=== PATIENT | male | born 1950 | race Caucasian/White ===

== ENCOUNTER 2024-02-25 10:45 | Emergency (ER) | payer OTHER | END 2024-02-25 11:35 | disposition home or self-care (01) | LOC: ERS 10:45 | DX: J02.8 Acute pharyngitis due to other specified organisms (principal); E11.9 Type 2 diabetes mellitus without complications; K21.9 Gastro-esophageal reflux disease without esophagitis; Z79.899 Other long term (current) drug therapy | CPT/HCPCS: 87081; 87430; 99283 ==